=== PATIENT | male | born 1970 | race African-American/Black ===

== ENCOUNTER 2025-05-30 19:36 | Emergency (ER) | payer MEDICAID, SELFPAY ==
[2025-05-30 19:37] VITALS: BP 149/106; PULSE 60; RESP 15; TEMP 36.1; O2SAT 97; BMI 29.5
--- NOTE | 2025-05-30 20:16 | EDS_ITS ---
HPI History of Present Illness Chief Complaint: Complaint Informant: patient Narrative Narrative: 54-year-old healthy patient states he had unprotected intercourse 3 nights ago in [place] where he is from prior to flying here, now he has burning dysuria without hematuria. He has noticed no discharge. No abdominal pain, no testicular pain or swelling. He states he has had some subjective fevers but he is not sure if he had a real temperature or not. He is otherwise feeling fine. He is concerned about an STI. PFSH PFSH Medical History no medical history no medical history Home Medications ?Medication ?Instructions ?Recorded ?Last Taken ?Type doxycycline monohydrate 100 mg 100 mg PO BID #14 CAPSU LES 05/30/25 Unknown Rx capsule Allergy/AdvReac Type Severity Reaction Status Date / Time No Known Allergies Allergy Verified 05/30/25 19:36 ROS ROS ED Constitutional Constitutional ED: Denies chills or fever(s) Eyes Eyes: Denies change in vision or diplopia ENT ENT ED: Denies rhinorrhea or sore throat Cardiovascular Cardiovascular: Denies chest pain or palpitations Respiratory/Chest Respiratory/Chest: Denies cough or dyspnea Gastrointestinal Gastrointestinal: Denies abdominal pain, diarrhea, nausea or vomiting Genitourinary Genitourinary ED: Reports dysuria; Denies hematuria, scrotal pain or scrotal swelling Musculoskeletal Musculoskeletal: Denies back pain or neck pain Integumentary Denies abscess or rash Neurologic Neurologic: Denies headache(s), paresthesias or weakness Psychiatric Psychiatric: Denies anxiety or suicidal thoughts EXAM Physical Exam Const Vital Signs: 05/30/25 19:37 Temperature 97 F L Temperature Source Temporal Pulse Rate 60 Respiratory Rate 15 Blood Pressure 149/106 H Blood Pressure Mean 120 Pulse Ox 97 Oxygen Delivery Method Room Air Positive well nourished and well developed General Appearance ED: well developed and NAD HEENT Reports moist mucous membranes normocephalic and atraumatic Eyes PERRL and EOMs intact bilaterally Neck full ROM and supple Resp normal respiratory effort GI non-tender and non-distended Auscultation: normoactive bowel sounds Palpation: soft Back/Spine no CVA tenderness General Back: other FROM Extremity normal to inspection General Extremety ED: Negative for edema General Extremity: Negative for edema Neuro oriented x3, CN's II-XII intact bilaterally and no sensory deficits noted Sensorium / Orientation: awake and alert Motor Exam: strength 5/5 throughout Skin no rashes or lesions noted and no wounds MDM MDM MDM Narrative Medical decision making narrative: I advised the patient that the most common etiology of the symptoms are gonorrhea and/or chlamydia and I advised sending a test which may not come back tonight and treating him empirically for both he is amenable to that, I discussed specifically that were not testing him for trichomonas, syphilis, HIV and if he wants that he will need to either follow-up with his doctor when he gets home or follow-up at the health department here in [facility]. Discharge Plan Triage Chief Complaint: Complaint ED Provider: Jama Rebolledo Dx/Rx/DC Orders Clinical Impression: Urethritis, unspecified Instructions: Urethritis STI ED Prescriptions: New doxycycline monohydrate 100 mg capsule 100 mg PO BID Qty: 14 0RF Primary Care Provider: Care Physician,No Primary Referrals: Health Department,[facility] [[facility]] - (If you desire further STD testing, or may follow-up with your doctor when you get home) Print Language: Japanese Disposition Disposition: Home, Self Care
[2025-05-30 21:36] VITALS: PULSE 62; RESP 18; O2SAT 98
[2025-05-30 23:00] VITALS: PULSE 65; RESP 18; O2SAT 98
== END 2025-05-30 23:23 | disposition home or self-care (01) ==
PROVIDERS: Emergency Provider Emergency Medicine; Visit Provider Emergency Medicine
DX: N34.2 Other urethritis (principal); R30.0 Dysuria
CPT/HCPCS: 87491; 87591; 96372; 99282